=== PATIENT | female | born 1990 | race American Indian/Alaskan Native ===

== ENCOUNTER 2021-11-21 10:24 | Emergency (ER) | payer OTHER ==
[~2021-11-21] VITALS: Ht 157.5 cm; Wt 60.8 kg
[2021-11-21] MEDS ORDERED: TUSSIN DM LIQU118 ML PO (12:11)
[2021-11-21] MEDS ORDERED: FLONASE ALLERG9.9 ML NASAL (12:13)
[2021-11-21] MEDS ORDERED: MEDROLPACK PO (12:13)
== END 2021-11-21 14:12 | disposition home or self-care (01) ==
LOC: ER 10:24
DX: R09.81 Nasal congestion (principal)

== ENCOUNTER 2025-04-17 16:14 | Emergency (ER) | payer OTHER ==
[~2025-04-17] VITALS: Ht 157.5 cm; Wt 63.0 kg
[~2025-04-17 16:14] MED LIST: FLONASE ALLERG9.9 ML NASAL; MEDROLPACK PO; TUSSIN DM LIQU118 ML PO
[2025-04-17] MEDS ORDERED: ZOVIRAX200 MG (16:32)
[2025-04-17 18:44] LABS: BASO % 0.1 % (0.1-1.2); EOS # 0.08 (0.04-0.54); EOS % 1.0 % (0.7-7.0); LYMPH # 2.45 (1.18-3.74); LYMPH % 31.9 % (19.3-53.1); MEAN PLATELET VOLUME 10.30 fl (9.4-12.4); MONO # 0.46 (0.24-0.82); MONO % 6.0 % (4.7-12.5); NEUT # 4.66 (1.56-6.13); NEUT % 60.7 % (34.0-71.1); RED CELL DISTRIBUTION WIDTH 13.2 % (11.6-14.4)
[2025-04-17 20:03] LABS: ALT/SGPT 39.0 U/L (12-78); AST/SGOT 30.0 U/L (15-37); BILIRUBIN TOTAL 0.27 mg/dL (0.3-1.2); BUN CREA RATIO 27.0 (7.0-25.0); CREATININE SERUM 0.66 mg/dL (0.55-1.02); GFR 103.78; GLOBULINA 4.0 G/DL (2.4-3.5); GLUCOSE FASTING 84.0 mg/dL (65-100); OSMOLALITY SERUM 288.0 MOSM/KG (275-295)
[2025-04-18] MEDS ORDERED: KETOROLAC TROMETHAMINE 30 MG VIAL IV ONE (00:30)
[2025-04-18] MEDS ORDERED: KETOROLAC TROMETHAMINE 60 MG VIAL IM ONE (00:30)
[2025-04-18] MEDS ORDERED: ORPHENADRINE CITRATE 100 MG TABLET PO ONE (00:30)
[2025-04-18] MEDS ORDERED: IBUPROFEN600 MG PO (00:38)
[2025-04-18] MEDS ORDERED: NORFLEX100MG PO (00:39)
== END 2025-04-18 00:43 | disposition home or self-care (01) ==
LOC: ER 16:14
PROVIDERS: Preventive Medicine Public Health & General Preventive Medicine
DX: R19.09 Other intra-abdominal and pelvic swelling, mass and lump (principal); M94.0 Chondrocostal junction syndrome [Tietze]; Z98.84 Bariatric surgery status